=== PATIENT | male | born 1990 | race Caucasian/White ===

== ENCOUNTER 2021-03-15 20:11 | Emergency (ER) | payer MEDICAID ==
[2021-03-15] MEDS ORDERED: CLEOCIN 150 MG CAPSULE PO ONE (20:52)
[2021-03-15] MEDS ORDERED: TORAdol 30 mg Injection IM ONE (20:53)
--- NOTE | 2021-03-15 21:00 | ERPHSYRPT ---
- History of Present Illness Time Seen by Provider: 03/15/21 20:27 Source: patient Exam Limitations: no limitations Physician History: 31 years old male with history of perirectal abscess in the past presented in the ER with 2 days of increasing pain with a lump which is gradually increasing in size in the left buttock with associated moderate to severe sharp pain which is aggravated with sitting, ambulation, palpation and partial relief with being still. Denies any discharge/fever or chills. Does have history of abscesses in the same area in the past. Denies any history of MRSA. Timing/Duration: day(s) (2), gradual onset, worse Quality: painful Severity: moderate Location: perirectal Possible Causes: no cause identified Associated Symptoms: swelling/mass/lumps Allergies/Adverse Reactions: morphine Allergy (Intermediate, Verified 03/15/21 20:56) - Review of Systems Constitutional: No Symptoms Eyes: No Symptoms Respiratory: No Symptoms Cardiac: No Symptoms Abdominal/Gastrointestinal: No Symptoms Genitourinary Symptoms: No Symptoms Musculoskeletal: No Symptoms Skin: Cellulitis, Rash Neurological: No Symptoms Psychological: No Symptoms Endocrine: No Symptoms Hematologic/Lymphatic: No Symptoms - Nursing Vital Signs Nursing Vital Signs: Initial Vital Signs Temperature 97.8 F 03/15/21 20:44 Pulse Rate 94 H 03/15/21 20:44 Respiratory Rate 16 03/15/21 20:44 Blood Pressure 140/78 03/15/21 20:44 O2 Sat by Pulse Oximetry 97 03/15/21 20:44 Pain Scale Pain Intensity 6 - Physical Exam General Appearance: no apparent distress, alert Eye Exam: eyes nml inspection Ears, Nose, Throat Exam: normal ENT inspection Neck Exam: normal inspection, full range of motion Respiratory Exam: normal breath sounds, lungs clear Cardiovascular Exam: regular rate/rhythm, normal heart sounds Back Exam: normal inspection, normal range of motion Extremity Exam: normal inspection, normal range of motion Neurologic Exam: alert, oriented x 3, cooperative, mold bunch trimmer II-XII nml as tested Skin Exam: normal color, other (4 x 2 cm area of induration left buttock closer to gluteal cleft. No swelling in the midline. No open head or discharge. Warm and tender to touch. Firm consistency. No fluctuation.) SpO2 Interpretation: normal SpO2: 96 O2 Delivery: Room Air Ordered Tests: Medication Summary Discontinued Medications Generic Name Dose Route Start Last Admin Trade Name Cynthia PRN Reason Stop Dose Admin Hydrocodone Bitart/Acetaminophen 2 tab 03/15/21 21:01 03/15/21 21:24 Brock 5/325 Mg PO 03/15/21 21:02 2 tab SENT HOME W/ PATIENT ONE Administration Hydrocodone Bitart/Acetaminophen Confirm 03/15/21 21:22 Brock 5/325 Mg Administered 03/15/21 21:23 Dose 2 tab .ROUTE .STK-MED ONE Clindamycin HCl 300 mg 03/15/21 20:52 03/15/21 21:24 Cleocin 150 Mg Capsule PO 03/15/21 20:53 300 mg STAT ONE Administration Clindamycin HCl Confirm 03/15/21 21:22 Cleocin 150 Mg Capsule Administered 03/15/21 21:23 Dose 300 mg .ROUTE .STK-MED ONE Ketorolac Tromethamine 30 mg 03/15/21 20:53 03/15/21 21:24 Toradol 30 Mg Injection IM 03/15/21 20:54 30 mg STAT ONE Administration Ketorolac Tromethamine Confirm 03/15/21 21:22 Toradol 30 Mg Injection Administered 03/15/21 21:23 Dose 30 mg .ROUTE .STK-MED ONE - Progress Progress: pain not gone completely Progress Note: 03/15/21 20:57 I believe patient is developing abscess. Is not ready to be drained as of right now. I would start him on clindamycin. Recommended outpatient primary care and general surgery follow-up. Discussed signs symptoms of worsening needing return to ER which he seems understanding. Stable for discharge. Counseled pt/family regarding: diagnosis, need for follow-up - Departure Departure Disposition: Home Clinical Impression: Abscess of buttock, left Condition: Stable Critical Care Time: No Referrals: GHASSAN JARA MD [Primary Care Provider] - (1-2 days for reevaluation) SHILOH COBOS [ACTIVE STAFF] - (1-2 days for reevaluation) Instructions: Wound Infection Additional Instructions: Have sitz bath. Take ibuprofen as needed for pain. Continue with antibiotics. Follow-up with primary care and general surgery for reevaluation. Return to ER for increasing pain swelling, fever chills etc. Prescriptions: Hydrocodone/APAP 5/325 [Brock 5/325 mg] 1 each PO Q6H PRN PRN #10 tablet MDD 4 PRN Reason: Pain Clindamycin HCl 150 mg [Cleocin 150 mg Capsule] 2 cap PO QID #56 capsule
[2021-03-15] MEDS ORDERED: NORCO 5/325 MG PO ONE (21:01)
[2021-03-15] MEDS ORDERED: NORCO 5/325 MG ONE (21:22)
[2021-03-15] MEDS ORDERED: TORAdol 30 mg Injection ONE (21:22)
[2021-03-15] MEDS ORDERED: CLEOCIN 150 MG CAPSULE ONE (21:22)
[2021-03-15 21:53] VITALS: BP 127/78; PULSE 84
[2021-03-16 00:44] VITALS: O2SAT 96
== END 2021-03-15 22:00 | disposition home or self-care (01) ==
LOC: ED 20:11
DX: L02.31 Cutaneous abscess of buttock (principal)
CPT/HCPCS: 96372; 99283; J1885; A9270-GY

== ENCOUNTER 2022-08-04 12:18 | Emergency (ER) | payer BC, MEDICAID ==
--- NOTE | 2022-08-04 12:25 | ERPHSYRPT ---
- History of Present Illness Time Seen by Provider: 08/04/22 12:24 Source: patient Exam Limitations: no limitations Physician History: This is a 32-year-old white male patient who is a current daily smoker of cigarettes and presents with recurrent left buttock abscess. Patient is not diabetic. He is not on any medications. He is allergic to morphine but he has taken Dalton on several occasions without any difficulties or side effects. He has not had fevers. Timing/Duration: day(s) (3) Quality: painful Severity: mild (To moderate.) Location: other (Left buttock) Possible Causes: no cause identified Associated Symptoms: swelling/mass/lumps (Abscessrecurrentleft buttock) Allergies/Adverse Reactions: morphine Allergy (Intermediate, Verified 08/04/22 12:42) Hx Tetanus, Diphtheria Vaccination/Date Given: Yes Hx Influenza Vaccination/Date Given: No Hx Pneumococcal Vaccination/Date Given: No Travel Risk - International Travel Have you traveled outside of the country in past 3 weeks: No - Coronavirus Screening Are you exhibiting any of the following symptoms?: No Close contact with a COVID-19 positive Pt in past 14-21 Days: No - Vaccine Status Have you recieved a Covid-19 vaccination: No - Review of Systems Constitutional: No Symptoms Eyes: No Symptoms Ears, Nose, & Throat: No Symptoms Respiratory: No Symptoms Cardiac: No Symptoms Abdominal/Gastrointestinal: No Symptoms Genitourinary Symptoms: No Symptoms Musculoskeletal: No Symptoms Skin: Other (Recurrent abscess left buttock) Neurological: No Symptoms Psychological: No Symptoms Endocrine: No Symptoms Hematologic/Lymphatic: No Symptoms Immunological/Allergic: No Symptoms All Other Systems: Reviewed and Negative - Past Medical History Pertinent Past Medical History: Yes 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 - Past Surgical History Past Surgical History: No - Social History Smoking Status: Current every day smoker How long have you smoked: 12 yrs Exposure to second hand smoke: No Patient Lives Alone: No - Nursing Vital Signs Nursing Vital Signs: Initial Vital Signs Temperature 98.1 F 08/04/22 12:19 Pulse Rate 113 H 08/04/22 12:19 Respiratory Rate 18 08/04/22 12:19 Blood Pressure 137/83 08/04/22 12:19 O2 Sat by Pulse Oximetry 97 08/04/22 12:19 Pain Scale Pain Intensity 10 - Physical Exam General Appearance: no apparent distress, alert, anxiety Eye Exam: PERRL/EOMI, eyes nml inspection Ears, Nose, Throat Exam: normal ENT inspection, moist mucous membranes Neck Exam: normal inspection, non-tender, supple, full range of motion Respiratory Exam: airway intact, No chest tenderness, No respiratory distress Cardiovascular Exam: tachycardia Gastrointestinal/Abdomen Exam: No tenderness Rectal Exam: not done, other (Left buttock abscess approximately 3 cm x 3 cm with NATASHA abscess indurated tissue present. Tenderness to palpation) Back Exam: normal inspection, normal range of motion, No CVA tenderness, No vertebral tenderness Extremity Exam: normal inspection, normal range of motion, pelvis stable Neurologic Exam: alert, oriented x 3, cooperative, solar/renewable energy sales II-XII nml as tested, normal mood/affect, nml cerebellar function, nml station & gait, sensation nml Skin Exam: other (Abscess left buttock) Lymphatic Exam: No adenopathy (see above) SpO2 Interpretation: normal O2 Delivery: Room Air Procedures - Incision and Drainage Time of Procedure: 12:40 Anesthesia: 1% Lidocaine cc's of anesthesia: 4 Blade Size: 15 I & D Procedure: betadine prep Results: moderate amount pus Progress: Odor present after incision and drainage of abscess - Course Nursing assessment & vital signs reviewed: Yes Ordered Tests: Active Orders 24 hr Category Date Time Status CULTURE,WOUND Stat Lab 08/04/22 12:43 Ordered Medication Summary Discontinued Medications Generic Name Dose Route Start Last Admin Trade Name Cynthia PRN Reason Stop Dose Admin Lidocaine HCl Confirm 08/04/22 12:34 Lidocaine Hcl 1% 20 Ml Mdv 20 Ml Ml Administered 08/04/22 12:35 Dose 5 ml .ROUTE .STK-MED ONE Lidocaine HCl 5 ml 08/04/22 12:38 08/04/22 12:39 Lidocaine Hcl 1% 20 Ml Mdv 20 Ml Ml IJ 08/04/22 12:39 5 ml STAT ONE Administration - Progress Progress: improved, pain not gone completely Counseled pt/family regarding: diagnosis, need for follow-up - Departure Departure Disposition: Home Clinical Impression: Abscess of left buttock Condition: Stable Critical Care Time: No Referrals: GHASSAN JARA MD [Primary Care Provider] - Follow up/PCP as directed Additional Instructions: Take your medication as prescribed. When you get home, sitz bath twice a day with warm Epson salts. Press circumferentially around the incision site to compress out any fluid. Rinse the area out with shower. Blot dry use a hairdryer to dry the site. Apply a NATASHA pad to the area after each washing and drying. Call your primary care provider for referral to a general surgeon for further evaluation and management. Prescriptions: Hydrocodone/APAP 5/325 [Dalton 5/325 mg] 1 each PO Q8H PRN PRN #10 tablet MDD 3 PRN Reason: Pain Smz/Tmp Ds Tablet [Bactrim Ds Tablet] 1 udtab PO BID #14 tablet Metronidazole 500 mg [Flagyl 500 MG] 500 mg PO TID #21 tablet
[2022-08-04] MEDS ORDERED: XYLOCAINE 1% HCL 20 ML MDV ONE (12:34)
[2022-08-04] MEDS ORDERED: XYLOCAINE 1% HCL 20 ML MDV IJ ONE (12:38)
[2022-08-04 12:42] VITALS: BP 137/83; PULSE 113; O2SAT 97
== END 2022-08-04 13:10 | disposition home or self-care (01) ==
LOC: ED 12:18
DX: L02.31 Cutaneous abscess of buttock (principal); Z79.891 Long term (current) use of opiate analgesic; Z28.310 Unvaccinated for COVID-19; Z72.0 Tobacco use
CPT/HCPCS: 10060; 87070; 87077; 96372; 99283

== ENCOUNTER 2022-10-23 22:19 | Emergency (ER) | payer BC, OTHER ==
[2022-10-23 22:40] VITALS: O2SAT 99
[2022-10-23] MEDS ORDERED: TORAdol 30 mg Injection IM ONE (22:43)
[2022-10-23] MEDS ORDERED: Norflex 60 MG/2 ML IM ONE (22:43)
[2022-10-23] MEDS ORDERED: TORAdol 30 mg Injection ONE (22:45)
[2022-10-23] MEDS ORDERED: Norflex 60 MG/2 ML ONE (22:45)
--- NOTE | 2022-10-23 22:46 | ERPHSYRPT ---
- History of Present Illness Time Seen by Provider: 10/23/22 22:43 Source: patient Exam Limitations: no limitations Patient Subjective Stated Complaint: pt states he has been having headaches off and on for last 5-6 days. states pain is on the rt side and radiates downto neck and sometimes shoulder. today headache started at approx 2030. pain is worse with sound and light Triage Nursing Assessment: pt alert and oriented, answers questions approp. pt ambulatory with steady gait noted. respirations nonlabored. skin warm and dry. pupils equal and reactive. bilat upper and lower ext strength equal and wnl. Physician History: pt states he has been having headaches off and on for last 5-6 days. states pain is on the rt side and radiates downto neck and sometimes shoulder. today headache started at approx 2030. pain is worse with sound and light Timing/Duration: today Quality: throbbing Head Pain Location: temporal Severity of Pain-Max: moderate Severity of Pain-Current: moderate Recent Head Trauma: frequent headaches Associated Symptoms: sensitive to light Previous symptoms: same symptoms as today Allergies/Adverse Reactions: morphine Allergy (Intermediate, Verified 10/23/22 22:40) Home Medications: No Reportable Medications [No Reported Medications] 10/23/22 [History] Hx Tetanus, Diphtheria Vaccination/Date Given: Yes Hx Influenza Vaccination/Date Given: No Hx Pneumococcal Vaccination/Date Given: No Immunizations Up to Date: Yes Travel Risk - International Travel Have you traveled outside of the country in past 3 weeks: No - Coronavirus Screening Are you exhibiting any of the following symptoms?: No Close contact with a COVID-19 positive Pt in past 14-21 Days: No - Vaccine Status Have you recieved a Covid-19 vaccination: No - Review of Systems Constitutional: No Fever, No Chills Eyes: No Symptoms Ears, Nose, & Throat: No Symptoms Respiratory: No Cough, No Dyspnea Cardiac: No Chest Pain, No Edema, No Syncope Abdominal/Gastrointestinal: No Abdominal Pain, No Nausea, No Vomiting, No Diarrhea Genitourinary Symptoms: No Dysuria Musculoskeletal: No Back Pain, No Neck Pain Skin: No Rash Neurological: Headache, No Dizziness, No Focal Weakness, No Sensory Changes Psychological: No Symptoms Endocrine: No Symptoms All Other Systems: Reviewed and Negative - Past Medical History Pertinent Past Medical History: Yes Neurological History: No Pertinent History ENT History: No Pertinent History Cardiac History: No Pertinent History Respiratory History: No Pertinent History Endocrine Medical History: No Pertinent History Musculoskeletal History: No Pertinent History GI Medical History: No Pertinent History History: No Pertinent History Psycho-Social History: No Pertinent History Male Reproductive Disorders: No Pertinent History 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 - Past Surgical History Past Surgical History: No - Social History Smoking Status: Current every day smoker How long have you smoked: 13 Exposure to second hand smoke: No Drug Use: none Patient Lives Alone: No - Nursing Vital Signs Nursing Vital Signs: Initial Vital Signs Temperature 97.1 F 10/23/22 22:29 Pulse Rate 76 10/23/22 22:29 Respiratory Rate 16 10/23/22 22:29 Blood Pressure 144/92 10/23/22 22:29 O2 Sat by Pulse Oximetry 99 10/23/22 22:29 Pain Scale Pain Intensity 8 - Physical Exam General Appearance: no apparent distress Eye Exam: PERRL/EOMI Ears, Nose, Throat Exam: normal ENT inspection, moist mucous membranes Neck Exam: normal inspection, supple, full range of motion, No meningismus Respiratory Exam: normal breath sounds, lungs clear Cardiovascular Exam: regular rate/rhythm, normal heart sounds Gastrointestinal/Abdominal Exam: soft, No tenderness, No distention Back Exam: normal inspection, normal range of motion Mental Status Exam: alert, oriented x 3, cooperative seismic plotter Exam: normal speech, PERRL, No facial droop Coordination/Gait Exam: normal cerebellar function Motor/Sensory Exam: no motor deficit, no sensory deficit Skin Exam: normal color, warm, dry, No rash SpO2: 99 - Course Nursing assessment & vital signs reviewed: Yes Ordered Tests: Medication Summary Generic Name Dose Route Start Last Admin Trade Name Cynthia PRN Reason Stop Dose Admin Ketorolac Tromethamine 60 mg 10/23/22 22:43 Ketorolac Tromethamine 30 Mg/Ml Inj IM 10/23/22 22:44 STAT ONE Orphenadrine Citrate 60 mg 10/23/22 22:43 Orphenadrine Citrate 60 Mg/2 Ml Vial IM 10/23/22 22:44 STAT ONE - Progress Progress: improved Counseled pt/family regarding: diagnosis, need for follow-up Medical Desision Making - Discussion of managment Agreed on:: Treatment plan, need for follow-up - Departure Departure Disposition: Home Clinical Impression: Migraine Qualifiers: Migraine type: with aura Status migrainosus presence: without status migrainosus Intractability: intractable Qualified Code(s): G43.119 - Migraine with aura, intractable, without status migrainosus Condition: Stable Critical Care Time: No Referrals: GHASSAN JARA MD [Primary Care Provider] - Follow up/PCP as directed Instructions: Headache, Adult (DC), Migraines (DC), Home Headache Remedies, Migraines in Adults Additional Instructions: Discharge/Care Plan SONI BARKER was seen on 10/23/22 in the Emergency Room. The patient was counseled regarding Diagnosis,Lab results, Imaging studies, need for follow up and when to return to the Emergency Room. Prescriptions given: Discharge Note I have spoken with the patient and/or caregivers. I have explained the patient's condition, diagnosis and treatment plan based on the information available to me at this time. I have answered the patient's and/or caregiver's questions and addressed any concerns. The patient and/or caregivers have as good understanding of the patient's diagnosis, condition and treatment plan as can be expected at this point. The vital signs have been stable. The patient's condition is stable and appropriate for discharge from the emergency department. The patient will pursue further outpatient evaluation with the primary care physician or other designated or consulting physician as outlined in the discharge instructions. The patient and/or caregivers are agreeable to this plan of care and follow-up instructions have been explained in detail. The patient and/or caregivers have received these instruction. The patient/and or caregivers are aware that any significant change in condition or worsening of symptoms should prompt an immediate return to this or the closest emergency department or call 911. SONI BARKER was seen on 10/23/22 n the Emergency Room. At that time you were treated for an emergent condition, during your visit Laboratory, Radiology and/or other procedures may have been ordered. It is very important that you follow-up with your Primary Care Physician GHASSAN JARA within the next 24-48 hours to review your Emergency Room visit and the final results of testing that was ordered. Some test results such as Urine Cultures, Blood Cultures, and other cultures if ordered will not be finalized for 24-48 hours. If you do not have a Primary Care Provider please call the medical records department at [phone] ext [phone] to obtain a copy of your results or you may sign into our patient portal to obtain these results by visiting us @ [email or web address] and completing the following steps: 1. Click on the Patient Portal link 2. Click the Patient Self Enrollment Link to complete the enrollment form and entering your 3. Once the enrollment form is completed you will receive an email with a temporary ID and password at the email address you provided. 4. Next choose a user name and password. Your user name must be at least 4 characters long and your password must be at least 4 characters long. 5. Choose a security question from the list and provide your answer to the q uestion. If you already have signed into the Health Portal you may access your Health Care Information 28/03 by the following steps: 1. Login to our website @ [email or web address] 2. Enter your original user name and password. FAQS The [facility] Portal is an online tool that contains your Lab Results, Radiology Reports, Visit History, Discharge Instructions and Health Summary Lab and Radiology Results will not be available for 72 hours on the portal. The Portal is a secure site, passwords are encryted and URLs are re-written so they cannot be copied and pasted. You and authorized family members are the only ones who can access your Portal. Also there is a timeout feature that protects your information if you leave the Portal page open. If you have technical difficulty please use the Contact Us link on the page this will allow you to submit any questions you have regarding the Portal or you may contact the Medical Record Department at [phone] ext [phone].
[2022-10-23 23:01] VITALS: BP 130/86; PULSE 74
== END 2022-10-23 23:03 | disposition home or self-care (01) ==
LOC: ED 22:19
DX: G43.119 Migraine with aura, intractable, without status migrainosus (principal); Z28.310 Unvaccinated for COVID-19; Z72.0 Tobacco use
CPT/HCPCS: 96372; 99283; J1885; J2360

== ENCOUNTER 2024-07-26 10:23 | Emergency (ER) | payer BC, OTHER ==
[2024-07-26 10:47] VITALS: TEMP 97.9; O2SAT 97
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
[2024-07-26] MEDS ORDERED: TORAdol 30 mg Injection ONE (11:05)
[2024-07-26] MEDS ORDERED: Norflex 60 MG/2 ML ONE (11:05)
[2024-07-26] MEDS: Norflex 60 MG/2 ML IM ONE (11:07)
[2024-07-26] MEDS: TORAdol 30 mg Injection IM ONE (11:08)
[2024-07-26 12:29] VITALS: BP 112/79; PULSE 70; RESP 16
== END 2024-07-26 12:28 | disposition home or self-care (01) ==
LOC: ED 10:23
DX: S39.012A Strain of muscle, fascia and tendon of lower back, initial encounter (principal); V53.6XXA Passenger in pick-up truck or van injured in collision with car, pick-up truck or van in traffic accident, initial encounter; Z72.0 Tobacco use; Z79.899 Other long term (current) drug therapy
CPT/HCPCS: 96372; 99284; 99285; J1885; J2360